=== PATIENT | female | born 1990 | race Native Hawaiian/Other Pacific Islander ===

== ENCOUNTER 2021-01-21 16:50 | Emergency (ER) | payer SELFPAY ==
[2021-01-21 17:36] VITALS: BP 122/91
[2021-01-21] MEDS ORDERED: KETOROLAC 30 MG/1 ML INJ IM ONE (19:36)
[2021-01-21] MEDS ORDERED: ONDANSETRON 4 MG ODT TAB PO ONE ×2 (19:36→22:08)
[2021-01-21 19:58] LABS: Basophils % (Auto) 0.6 % (0.0-1.8); Eosinophils # (Auto) 0.1 K/mm3 (0.0-0.4); Eosinophils % (Auto) 1.3 % (0.0-4.3); Hematocrit 34.9 % (30.3-42.9); Hemoglobin 11.4 gm/dl (10.1-14.3); Lymphocytes # (Auto) 2.4 K/mm3 (1.2-5.4); Lymphocytes % (Auto) 33.7 % (13.4-35.0); Mean Corpuscular HGB Conc 33 % (30-34); Mean Corpuscular Volume 90 fl (79-97); Monocytes # (Auto) 0.4 K/mm3 (0.0-0.8); Monocytes % (Auto) 6.2 % (0.0-7.3); Platelet Count 362 K/mm3 (140-440); Red Blood Count 3.86 M/mm3 (3.65-5.03); Red Cell Distribution Width 16.3 % (13.2-15.2)
[2021-01-21 20:16] LABS: Alanine Aminotransferase 10 units/L (7-56); Albumin 4.2 g/dL (3.9-5); BUN/Creatinine Ratio 10; Blood Urea Nitrogen 8 mg/dL (7-17); Calcium 9.5 mg/dL (8.4-10.2); Hemolysis Index 12
--- NOTE | 2021-01-21 20:27 | Ultrasound Report ---
Pelvic ultrasound with Doppler INDICATION: Pelvic pain FINDINGS: The uterus measures 10 x 3 x 4 cm. Endometrial thickness is 5 mm. No significant free pelvi c fluid identified. Both ovaries appear grossly unremarkable. IMPRESSION: No acute findings. Signer Name: Champ West MD Signed: 01/21/2021 8:23 PM Workstation Name: [id number]
[2021-01-21 20:40] LABS: Bacteria,Urine 1+ /HPF (Negative); Bilirubin,Urine NEG (Negative); Blood,Urine NEG (Negative); Color,Urine Yellow (Yellow); Mucus,Urine 2+ /HPF; Protein,Urine <15 mg/dL mg/dL (Negative); Urobilinogen,Urine < 2.0 mg/dL (<2.0)
[2021-01-21] MEDS ORDERED: oxyCODONE /ACETAMINOPHEN 5-325MG TAB PO ONE (22:08)
[2021-01-21] MEDS ORDERED: AZITHROMYCIN 250 MG TAB PO ONE (22:54)
[2021-01-21] MEDS ORDERED: LIDOCAINE-MPF (1%) 10 MG/1 ML VIAL 5 ML INFILTRATI ONE (22:54)
--- NOTE | 2021-01-22 01:05 | Emergency Department Report ---
ED Female HPI - General Chief complaint: Abdominal Pain Stated complaint: ABD PAIN/VAGINAL PAIN IRRITATION Source: patient Mode of arrival: Ambulatory Limitations: No Limitations - History of Present Illness Initial comments: Patient is a nulliparous 30-year-old -[place] female who presents to the ED with complaint of acute onset persistent severe intermittent pelvic pain, dyspareunia, nausea and vomiting, dysuria, urinary frequency and urgency and low back pain for the last 2 months, worse in the last 2 days. Patient states that she has previously been evaluated extensively by her [facility] physician about a week ago and was diagnosed with acute PID, and was placed on antibiotics which she finished. Patient states that her pain got worse the last 2 days during sexual intercourse which was unprotected. Patient denies dizziness, syncope, fever, chills, vaginal bleeding, diarrhea, chest pain, shortness of breath, traumatic injury, sore throat, headache or constipation. MD Complaint: dysuria, pelvic pain, other (lower back pain) -: Gradual, month(s) (2) Location: suprapubic Radiation: non-radiating Severity: severe Severity scale (0 -10): 8 Quality: cramping, sharp Consistency: intermittent Improves with: none Worsens with: intercourse, movement Are you Now?: No Last Menstrual Period: 01/07/21 EDC: 10/14/21 Associated Symptoms: denies other symptoms, vaginal discharge, abdominal pain (suprapubic pain), nausea/vomiting, dysuria. denies: vaginal bleeding, fever/chills, headaches, loss of appetite, hematuria, rash, seizure, shortness of breath, syncope, weakness - Related Data Sexually active: Yes : 0 Para: 0 A: 0 Previous Rx's Medication Instructions Recorded Last Taken Type Doxycycline Hyclate 100 mg PO Q12H #28 tablet. 01/22/21 Unknown Rx Fluconazole [Diflucan TAB] 200 mg PO QDAY #3 tablet 01/22/21 Unknown Rx Ibuprofen [Motrin] 800 mg PO Q8HR PRN #30 tablet 01/22/21 Unknown Rx Ondansetron [Zofran Odt] 4 mg PO Q8HR PRN #20 tab.morris 01/22/21 Unknown Rx metroNIDAZOLE [Flagyl] 500 mg PO Q12HR #20 tab 01/22/21 Unknown Rx traMADoL [Ultram] 50 mg PO Q6HR PRN #12 tablet 01/22/21 Unknown Rx Allergies Allergy/AdvReac Type Severity Reaction Status Date / Time No Known Allergies Allergy Verified 01/21/21 22:26 ED Review of Systems ROS: Stated complaint: ABD PAIN/VAGINAL PAIN IRRITATION Other details as noted in HPI Constitutional: denies: chills, fever Eyes: denies: eye pain, eye discharge, vision change ENT: denies: ear pain, throat pain Respiratory: denies: cough, shortness of breath, wheezing Cardiovascular: denies: chest pain, palpitations Endocrine: no symptoms reported Gastrointestinal: abdominal pain (Lower abdominal pain), nausea, vomiting. d enies: diarrhea Genitourinary: urgency, dysuria, frequency, discharge, dyspareunia. denies: abnormal menses Musculoskeletal: back pain (Low back pain). denies: joint swelling, arthralgia Skin: denies: rash, lesions Neurological: denies: headache, weakness, paresthesias Psychiatric: denies: anxiety, depression Hematological/Lymphatic: denies: easy bleeding, easy bruising ED Past Medical Hx - Past Medical History Previous Medical History?: No - Surgical History Past Surgical History?: Yes Additional Surgical History: left ovary removed, - Medications Home Medications: Home Medications Medication Instructions Recorded Confirmed Last Taken Type Doxycycline Hyclate 100 mg PO Q12H #28 tablet. 01/22/21 Unknown Rx Fluconazole [Diflucan TAB] 200 mg PO QDAY #3 tablet 01/22/21 Unknown Rx Ibuprofen [Motrin] 800 mg PO Q8HR PRN #30 tablet 01/22/21 Unknown Rx Ondansetron [Zofran Odt] 4 mg PO Q8HR PRN #20 tab.rapdis 01/22/21 Unknown Rx metroNIDAZOLE [Flagyl] 500 mg PO Q12HR #20 tab 01/22/21 Unknown Rx traMADoL [Ultram] 50 mg PO Q6HR PRN #12 tablet 01/22/21 Unknown Rx ED Physical Exam - General Limitations: No Limitations General appearance: alert, in no apparent distress - Head Head exam: Present: atraumatic, normocephalic, normal inspection - Eye Eye exam: Present: normal appearance, PERRL, EOMI Pupils: Present: normal accommodation - ENT ENT exam: Present: normal exam, normal orophraynx, mucous membranes moist, TM's normal bilaterally, normal external ear exam - Neck Neck exam: Present: normal inspection, full ROM - Respiratory Respiratory exam: Present: normal lung sounds bilaterally. Absent: respiratory distress, wheezes, rales, rhonchi, chest wall tenderness, decreased breath sounds, prolonged expiratory - Cardiovascular Cardiovascular Exam: Present: regular rate, normal rhythm, normal heart sounds. Absent: systolic murmur, diastolic murmur, rubs, gallop - GI/Abdominal GI/Abdominal exam: Present: soft, tenderness (Palpable severe suprapubic tenderness with guarding), guarding, normal bowel sounds. 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 Ayala) - Extremities Exam Extremities exam: Present: normal inspection, full ROM, normal capillary refill - Back Exam Back exam: Present: normal inspection, full ROM. Absent: tenderness, CVA tenderness (R), CVA tenderness (L), muscle spasm, paraspinal tenderness, vertebral tenderness - Neurological Exam Neurological exam: Present: alert, oriented X3, CN II-XII intact, normal gait, reflexes normal - Psychiatric Psychiatric exam: Present: normal affect, normal mood - Skin Skin exam: Present: warm, dry, intact, normal color. Absent: rash ED Course Vital Signs 01/21/21 17:35 Temperature 98.2 F Pulse Rate 78 Respiratory 18 Rate Blood Pressure 122/91 O2 Sat by Pulse 100 Oximetry ED Medical Decision Making - Lab Data Result diagrams: 01/21/21 19:38 01/21/21 19:38 - Radiology Data Radiology results: report reviewed, image reviewed [facility] [address] [place] [address] Ultrasound Report Signed Patient: CORTES WOOD MR#: [id number] 1 : 1990 Acct:[id number] Age/Sex: 30 / F ADM Date: 01/21/21 Loc: ED Attending Dr: Ordering Physician: CASEY GARCÍA Date of Service: 01/21/21 Procedure(s): US pelvic complete Accession Number(s): [id number] cc: CASEY GARCÍA Pelvic ultrasound with Doppler INDICATION: Pelvic pain FINDINGS: The uterus measures 10 x 3 x 4 cm. Endometrial thickness is 5 mm. No significant free pelvic fluid identified. Both ovaries appear grossly unremarkable. IMPRESSION: No acute findings. Signer Name: Champ West MD Signed: 01/21/2021 8:23 PM Workstation Name: [id number] Transcribed By: Dictated By: Champ West MD Electronically Authenticated By: Champ West MD Signed Date/Time: 01/21/212022 DD/ 21 TD/TT: - Medical Decision Making This is a nulliparous 30-year-old -[place] female who presents to the ED with complaint of acute onset persistent severe intermittent pelvic pain, dyspareunia, nausea and vomiting, dysuria, urinary frequency and urgency and low back pain for the last 2 months, worse in the last 2 days. Patient states that she has previously been evaluated extensively by her [facility] physician about a week ago and was diagnosed with acute PID, and was placed on antibiotics which she finished. Patient states that her pain got worse the last 2 days during sexual intercourse which was unprotected. In the ED, patient is alert and oriented x3 and is not in any distress. Patient was treated for pain in the ED and also treated with antiemetics. Lab test results were reviewed and are all nonactionable. Pelvic ultrasound showed no acute abnormalities. Pelvic exam was positive for suspected acute PID as characterized by severe cervical motion tenderness with chandelier sign and bilateral adnexal tenderness. Patient was empirically treated in the ED for suspected acute PID with Rocephin 1 g intramuscular injection, azithromycin 1 g p.o. x1. On reevaluation, patient's pain is well controlled medication. Patient will discharge home on pain medication antibiotics and was advised to follow-up with her [facility] physician or primary care physician in 7 to 10 days for reevaluation. Patient was also counseled on the importance of having protected sexual intercourse. Patient is advised return to the ED immediately if symptoms get worse. - Differential Diagnosis PID; UTI; kidney stone; endometriosis; ; ovarian cyst; appendiciti Critical care attestation.: If time is entered above; I have spent that time in minutes in the direct care of this critically ill patient, excluding procedure time. ED Disposition Clinical Impression: Acute bilateral lower abdominal pain, Acute pelvic inflammatory disease (PID), Candidal vaginitis, Bacterial vaginosis Disposition: - TO HOME OR SELFCARE Is pt being admited?: No Does the pt Need Aspirin: No Condition: Stable Instructions: Abdominal Pain (ED), Bacterial Vaginosis (ED), Bacterial Va ginosis, [id number], Abdominal Pain, Adult, [id number], Vaginitis, [id number], Pelvic Inflammatory Disease, [id number] Additional Instructions: All lab test results were reviewed and are all nonactionable. Pelvic ultrasound showed no acute abnormalities. Based on the history and physical exam findings consistent with acute pelvic inflammatory disease, take these medications until finished, follow-up with your [facility] physician in 7 to 10 days for reevaluation. Return to the ED immediately if symptoms get worse. Prescriptions: Fluconazole [Diflucan TAB] 200 mg PO QDAY #3 tablet Doxycycline Hyclate 100 mg PO Q12H #28 tablet. metroNIDAZOLE [Flagyl] 500 mg PO Q12HR #20 tab Ibuprofen [Motrin] 800 mg PO Q8HR PRN #30 tablet PRN Reason: Pain , Severe (7-10) traMADoL [Ultram] 50 mg PO Q6HR PRN #12 tablet PRN Reason: Pain Ondansetron [Zofran Odt] 4 mg PO Q8HR PRN #20 tab.rapdis PRN Reason: Nausea Referrals: SAEID KEENE MD [Staff Physician] - 3-5 Days Forms: STI Treatment and Prevention, Work/School Release Form(ED) Time of Disposition: 01:05 Print Language: VIETNAMESE
== END 2021-01-22 01:20 | disposition home or self-care (01) ==
LOC: ED 16:50
DX: N73.9 Female pelvic inflammatory disease, unspecified (principal); N76.0 Acute vaginitis; B96.89 Other specified bacterial agents as the cause of diseases classified elsewhere; B37.3 Candidiasis of vulva and vagina; Z79.899 Other long term (current) drug therapy
CPT/HCPCS: 36415; 76856; 80053; 81001; 84703; 85025; 96372; 99284; J0696; J1885; Q0162